=== PATIENT | female | born 1995 | race Two or more races ===

== ENCOUNTER 2017-06-25 09:29 | Emergency (ER) | payer SELFPAY ==
[2017-06-25 09:48] VITALS: BMI 21.7
--- NOTE | 2017-06-25 10:14 | PDOC ---
History of Present Illness - General History Source: Patient Exam Limitations: No Limitations - History of Present Illness Initial Comments: 06/25/17 12:01 Patient is a 22 year old female with a significant past medical history of who presents to the ED with complaints of headache that began yesterday. Patient reports experiencing sudden onset of headache yesterday while at home that has shown no signs of subsiding. She reports experiencing trouble sleeping last night secondary to SOB while lying down flat. Patient reports experiencing left sided chest pain and back pain secondary to lying flat, stating it feels like someone is squeezing my heart. She reports experiencing intermittent abdominal pain for 2 days as well as intermittent diarrhea. Patient states her last menstrual period was 2 weeks ago. Denies nausea, vomiting. Denies fevers, Denies out of state travelling. Denies any other symptoms. Allergies: Amoxicillin Social history: No smoking. No alcohol. No illicit drugs. Surgical history: None PMD: None <Georges Shelton - Last Filed: 06/25/17 12:01> <Tyra Baez - Last Filed: 06/25/17 12:15> - General Chief Complaint: Lightheaded Stated Complaint: CHEST PAIN Time Seen by Provider: 06/25/17 10:12 Past History <Georges Shelton - Last Filed: 06/25/17 12:01> - Past Medical History COPD: No Other medical history: DENIES. - Immunization History Immunization Up to Date: Yes - Suicide/Smoking/Psychosocial Hx Smoking History: Never smoked Hx Alcohol Use: No <Tyra Baez - Last Filed: 06/25/17 12:15> - Past Medical History Allergies/Adverse Reactions: Allergies Allergy/AdvReac Type Severity Reaction Status Date / Time amoxicillin Allergy Unknown Hives Verified 06/25/17 09:44 Home Medications: Ambulatory Orders Ibuprofen [Motrin -] 600 mg PO TID PRN #21 tablet 06/25/17 Review of Systems - Review of Systems Able to Perform ROS?: Yes Comments:: 06/25/17 12:02 GENERAL/CONSTITUTIONAL: No fever or chills. No weakness. HEAD, EYES, EARS, NOSE AND THROAT: No change in vision. No ear pain or discharge. No sore throat. GASTROINTESTINAL: +Diarrhea. No nausea, vomiting, or constipation. GENITOURINARY: No dysuria, frequency, or change in urination. CARDIOVASCULAR: +Chest pain. +SOB RESPIRATORY: No cough, wheezing, or hemoptysis. MUSCULOSKELETAL: No joint or muscle swelling or pain. No neck or back pain. SKIN: No rash NEUROLOGIC: +headache. No vertigo, loss of consciousness, or change in strength/sensation. ENDOCRINE: No increased thirst. No abnormal weight change. HEMATOLOGIC/LYMPHATIC: No anemia, easy bleeding, or history of blood clots. ALLERGIC/IMMUNOLOGIC: No hives or skin allergy. All Other Systems: Reviewed and Negative <Georges Shelton - Last Filed: 06/25/17 12:01> *Physical Exam - Vital Signs Last Vital Signs Temp Pulse Resp BP Pulse Ox 99.3 F 107 H 19 112/70 99 06/25/17 09:44 06/25/17 09:44 06/25/17 09:44 06/25/17 09:44 06/25/17 09:44 - Physical Exam Comments: 06/25/17 12:02 GENERAL: +Appears uncomfortable. +symptoms reproduced by lying supine. Awake, alert, and fully oriented, in no acute distress HEAD: No signs of trauma EYES: PERRLA, EOMI, sclera anicteric, conjunctiva clear ENT: Auricles normal inspection, hearing grossly normal, nares patent, oropharynx clear without exudates. Moist mucosa NECK: Normal ROM, supple, no lymphadenopathy, JVD, or masses LUNGS: Breath sounds equal, clear to auscultation bilaterally. No wheezes, and no crackles HEART: Regular rate and rhythm, normal S1 and S2, no murmurs, rubs or gallops ABDOMEN: Soft, nontender, normoactive bowel sounds. No guarding, no rebound. No masses EXTREMITIES: Normal range of motion, no edema. No clubbing or cyanosis. No cords, erythema, or tenderness NEUROLOGICAL: Cranial nerves II through XII grossly intact. Normal speech, normal gait SKIN: Warm, Dry, normal turgor, no rashes or lesions noted. <Georges Shelton - Last Filed: 06/25/17 12:01> - Vital Signs Last Vital Signs Temp Pulse Resp BP Pulse Ox 99.3 F 107 H 19 112/70 99 06/25/17 09:44 06/25/17 09:44 06/25/17 09:44 06/25/17 09:44 06/25/17 09:44 <Tyra Baez - Last Filed: 06/25/17 12:15> ED Treatment Course - ADDITIONAL ORDERS Additional order review: Laboratory Results 06/25/17 11:03 Urine HCG, Qual Negative 06/25/17 11:07 Influenza Types A,B Antigen (FIDE) - Final Nasopharyngeal Swab - Final - Medications Given in the ED: ED Medications Discontinued Medications Generic Name Dose Route Start Last Admin Trade Name Mendez PRN Reason Stop Dose Admin Ibuprofen 600 mg 06/25/17 11:29 06/25/17 11:50 Motrin - PO 06/25/17 11:30 600 mg ONCE ONE Administration <Georges Shelton - Last Filed: 06/25/17 12:01> *DC/Admit/Observation/Transfer - Attestations Scribe Attestion: 06/25/17 12:02 Documentation prepared by Georges Shelton, acting as medical editor for Tyra Baez MD, /DO. <Georges Shelton - Last Filed: 06/25/17 12:01> - Discharge Dispostion Admit: No <Tyra Baez - Last Filed: 06/25/17 12:15> Diagnosis at time of Disposition: Pericarditis Qualifiers: Pericarditis type: unspecified type Chronicity: acute Qualified Code(s): I30.9 - Acute pericarditis, unspecified - Discharge Dispostion Disposition: HOME Condition at time of disposition: Stable - Prescriptions Prescriptions: Ibuprofen [Motrin -] 600 mg PO TID PRN #21 tablet PRN Reason: Pain - Patient Instructions Printed Discharge Instructions: DI for Pericarditis
[2017-06-25] MEDS ORDERED: IBUPROFEN 600 MG TABLET (FP) PO ONE ×2 (11:29→11:46)
--- NOTE | 2017-06-25 12:27 | EKG ---
Test Reason : Blood Pressure : / mmHG Vent. Rate : 093 BPM Atrial Rate : 093 BPM P-R Int : 112 ms QRS Dur : 084 ms QT Int : 350 ms P-R-T Axes : 014 060 036 degrees QTc Int : 435 ms NORMAL SINUS RHYTHM NORMAL ECG NO PREVIOUS ECGS AVAILABLE Confirmed by LANDRY NUNES MD ([id number]) on 06/25/2017 12:27:32 PM Referred By: Confirmed By:LANDRY NUNES MD
[2017-06-25 12:29] VITALS: BP 122/80; PULSE 80; TEMP 98.6
== END 2017-06-25 12:28 | disposition home or self-care (01) ==
LOC: JER 09:29
DX: I30.9 Acute pericarditis, unspecified (principal)
CPT/HCPCS: 71046-TC; 84703; 87804; 93005; 93010; 99283-25